=== PATIENT | male | born 1980 | race Native Hawaiian/Other Pacific Islander ===

== ENCOUNTER 2018-12-20 10:02 | Outpatient (CLI) | payer BC ==
[2018-12-20 11:05] LABS: PLATELET COUNT 318 K/uL (142-355)
[2018-12-20 11:11] LABS: POTASSIUM 3.9 mmol/L (3.6-5.2)
== END 2018-12-20 19:43 | disposition home or self-care (01) ==
LOC: LABW 10:02
PROVIDERS: Physician Assistant
DX: R60.9 Edema, unspecified (principal); Z79.899 Other long term (current) drug therapy; Z68.41 Body mass index [BMI] 40.0-44.9, adult; I10 Essential (primary) hypertension; M25.50 Pain in unspecified joint
CPT/HCPCS: 36415; 80053; 80061; 83036; 83735; 84439; 84443; 85027; 85651; 86431

== ENCOUNTER 2020-07-14 22:52 | Emergency (ER) | payer BC ==
[~2020-07-14] VITALS: Ht 177.8 cm; Wt 129.3 kg
[2020-07-14 23:53] LABS: POTASSIUM 4.5 mmol/L (3.6-5.2)
[2020-07-14 23:58] LABS: PLATELET COUNT 212 K/uL (142-355)
[2020-07-15 01:20] VITALS: BP 146/79; TEMP 98.2
== END 2020-07-15 01:20 | disposition home or self-care (01) ==
LOC: ED 22:52
PROVIDERS: Emergency Medicine Emergency Medical Services
DX: K52.89 Other specified noninfective gastroenteritis and colitis (principal)
CPT/HCPCS: 36415; 80053; 83690; 85027; 96360; 96375; 99284; J2405; Q9963

== ENCOUNTER 2020-07-16 16:24 | Emergency (ER) | payer BC ==
[~2020-07-16] VITALS: Ht 177.8 cm; Wt 129.3 kg
[2020-07-16 17:54] LABS: PLATELET COUNT 257 K/uL (142-355)
[2020-07-16 18:01] LABS: POTASSIUM 3.1 mmol/L (3.6-5.2)
[2020-07-16 21:48] VITALS: BP 147/82; TEMP 98.2
== END 2020-07-16 21:48 | disposition home or self-care (01) ==
LOC: ED 16:24
PROVIDERS: Emergency Medicine
DX: R19.7 Diarrhea, unspecified (principal)
CPT/HCPCS: 80053; 81000; 82272; 83630; 85027; 86318; 87015; 87045; 87324; 87328; 87329; 87449; 87899; 96360; 96375; 99284; J2405

== ENCOUNTER 2020-10-12 17:22 | Emergency (ER) | payer BC ==
[~2020-10-12] VITALS: Ht 177.8 cm; Wt 129.3 kg
[2020-10-12 18:36] LABS: PLATELET COUNT 249 K/uL (142-355)
[2020-10-12 18:49] LABS: POTASSIUM 3.5 mmol/L (3.6-5.2)
[2020-10-12 19:37] VITALS: BP 150/85; TEMP 99
== END 2020-10-12 19:37 | disposition home or self-care (01) ==
LOC: ED 17:22
PROVIDERS: Hospitalist
DX: U07.1 COVID-19 (principal); J06.9 Acute upper respiratory infection, unspecified
CPT/HCPCS: 36415; 80053; 85027; 87635; 87651; 99283; U0003

== ENCOUNTER 2022-07-21 03:47 | Emergency (ER) | payer BC ==
[~2022-07-21] VITALS: Ht 177.8 cm; Wt 129.3 kg
[2022-07-21 05:00] VITALS: BP 146/90; TEMP 99.1
== END 2022-07-21 05:12 | disposition home or self-care (01) ==
LOC: ED 03:47
DX: K08.89 Other specified disorders of teeth and supporting structures (principal)
CPT/HCPCS: 96372; 99283; J1885

== ENCOUNTER 2023-08-02 08:19 | Outpatient (CLI) | payer BC | END 2023-08-02 18:51 | disposition home or self-care (01) | LOC: US 08:19 | PROVIDERS: ATTEND Internal Medicine | DX: M50.00 Cervical disc disorder with myelopathy, unspecified cervical region (principal); R55 Syncope and collapse | CPT/HCPCS: A9576 ==